=== PATIENT | female | born 1990 | race Caucasian/White ===

== ENCOUNTER 2021-12-08 08:09 | Emergency (ER) | payer OTHER, SELFPAY ==
[2021-12-08 08:21] VITALS: BP 127/77; PULSE 102; RESP 16; TEMP 36.8; O2SAT 99; BMI 37.2
[2021-12-08] MEDS: Ondansetron ODT 4 MG TAB.RAPDIS TRANSLINGU (08:27)
[2021-12-08 08:57] LABS: COVID-19 Test Negative (Negative); IDNOW Serial# 9DB6401D
--- NOTE | 2021-12-08 11:02 | ED.ASTHMA ---
HPI - Asthma General Chief Complaint: Asthma Stated Complaint: asthma, and throwing up Time Seen by Provider: 12/08/21 11:01 Source: patient Mode of arrival: ambulatory Limitations: no limitations History of Present Illness HPI Narrative: 31 yo female with history of mild intermittent asthma presents to the ER with 3 days of worsening productive cough, runny nose SOB and generally not feeling well. Her young son is home with similar symptoms. She has had not fevers or chills. She has been having a productive cough of white phlegm. It has been making her vomit. She has no abdominal pain, chest pain or difficulty breathing. She has been using her ProAir inhaler with no improvement in her symptoms. MD complaint: shortness of breath and wheezing Onset (ago): day(s) (3) Severity: moderate Context: recent URI Associated symptoms: productive cough Treatments Prior to Arrival: inhaled bronchodilator Related Data Current Asthma Therapy: inhaled bronchodilator Previous Rx's Medication Instructions Recorded azithromycin 250 mg tablet See Rx Instructions PO .COMPLEX #6 12/08/21 (Zithromax Z-Johny) tabs guaifenesin 1,200 mg tablet, 1,200 mg PO BID #10 tabs 12/08/21 extended release 12 hr (Mucinex) prednisone 20 mg tablet 40 mg PO DAILY #10 tabs 12/08/21 Allergies Allergy/AdvReac Type Severity Reaction Status Date / Time No Known Allergies Allergy Unverified 11/18/19 18:12 Review of Systems Review of Systems: Constitutional: No Fever, No Chills ENT/Mouth: + sore throat, +Rhinorrhea, No Swallowing Difficulty Eyes: No Eye Pain, No Swelling, No Redness Cardiovascular: No Chest Pain, No SOB, No Orthopnea, No Edema Respiratory: + Cough, + Sputum, + Wheezing, No dyspnea Gastrointestinal: + Nausea, + Vomiting, No Diarrhea, No abdominal Pain Musculoskeletal: No joint pain, + Myalgias Skin: No Skin Lesions, No rash Neuro: No Weakness, No Numbness, No Dizziness, + Headache Heme/Lymph: No Bruising, No Lymphadenopathy PMFSH Social History Social History Advance Directives: No Advance Directives Information Provided: Yes Physical Exam Vital Signs: Vital Signs: Last Vital Signs Temp 98.3 F 12/08/21 08:21 Pulse 85 12/08/21 11:33 Resp 18 12/08/21 11:33 BP 127/77 10/08/22 08:21 Pulse Ox 100 12/08/21 11:03 O2 Del Method 12/08/21 11:03 BMI result Body Mass Index 37.2 Appearance: Alert. Oriented X3. No acute distress. Eyes: Pupils equal, round and reactive to light. ENT: Pharynx normal. Neck: Normal inspection. Neck supple. CVS: Tachycardic regular rhythm, HR 110. Pulses normal. Respiratory: No respiratory distress. Breath sounds coarse throughout, mild expiratory wheeze at the bilateral bases. Abdomen: Soft and nontender. +BS x4 Skin: Skin warm and dry. Normal skin color. Normal skin turgor. No rashes. Extremities: Normal inspection x4. Neuro: Oriented X 3. Nonfocal, steady gait Course Course Course Narrative: 31 yo female with history of mild intermittent asthma presenting with productive cough, wheezing, SOB, runny nose and body aches x3 days in the setting of sickness exposure to her young son at home. She has been afebrile. COVID negative at home. On arrival she has tight lung sounds but is oxygenating well, no respiratory distress. COVID, Flu, CXR pending. Reevaluation(s) Reevaluation #1: CXR shows no pneumonia. COVID negative. Flu pending. Will give dose of prednisone and mucinex here as well as albuterol 5 mg neb and reassess. Reevaluation #2: Improved after neb. Flu negative. Stable for d/c home. Work note provided. MDM - Asthma Lab Data Labs: Lab Results 12/08/21 12/08/21 Range/Units 08:31 11:09 COVID-19 ([facility]ISSY) Negative (Negative) COVID-19 Clin Com See Note Influenza Type A (ROSS) Negative (Negative) Influenza Type B (ROSS) Negative (Negative) Influenza A & B Note See Note Discharge Plan Discharge Clinical Impression: Acute asthmatic bronchitis Patient Disposition: Home, Self-Care Additional Instructions: Your chest x-ray showed no pneumonia. You tested negative for Flu and COVID. Your symptoms are most likely due to a viral infection. Take the prescribed medications as directed. Start the prednisone tomorrow, you were given 1st dose today in the ER. Take over the counter cold/flu medications as needed for your symptoms. Rest and stay hydrated. If you develop new or worsening symptoms call 911 or come back to the ER for further evaluation. Prescriptions: New prednisone 20 mg tablet 40 mg PO DAILY Qty: 10 0RF azithromycin [Zithromax Z-Johny] 250 mg tablet See Rx Instructions .ROUTE .COMPLEX Qty: 6 0RF Rx Instructions: take 500 mg today (day 1), then 250 mg for 4 days (days 2-5) Mucinex 1,200 mg tablet extended release 12hr 1,200 mg PO BID Qty: 10 0RF Stand Alone Forms: Work/School Release
[2021-12-08 11:03] VITALS: PULSE 99; O2SAT 100
[2021-12-08] MEDS: guaiFENesin LA 600 MG TAB.ER.12H 1200 MG PO (11:14)
[2021-12-08] MEDS: predniSONE 20 MG TABLET 40 MG PO (11:14)
--- NOTE | 2021-12-08 11:26 | PC.NURSE ---
pt ambulatory into dept, dry cough heard. pt speaking in full sentances, SpO2 100% RA 99bpm
[2021-12-08] MEDS: Albuterol Sulfate 2.5 MG, Albuterol Sulfate (0.083%) 2.5 MG 5 MG INHALE (11:30)
--- OUTSIDE RECORDS SUMMARY | 2021-12-08 11:32 | XMS_ITS | Continuity of Care Document ---
:1990 Author Organization [facility]
--- OUTSIDE RECORDS SUMMARY | 2021-12-08 11:32 | XMS_ITS | Continuity of Care Document ---
:1990
[2021-12-08 11:33] VITALS: PULSE 85; RESP 18; O2SAT 99
[2021-12-08 11:40] LABS: IDNOW Serial# 9DB6401D; Influenza A Negative (Negative)
[2021-12-08 11:41] LABS: Influenza B2 Negative (Negative)
== END 2021-12-08 12:01 | disposition home or self-care (01) ==
PROVIDERS: Physician Assistant; Emergency Provider Emergency Medicine
DX: J45.909 Unspecified asthma, uncomplicated (principal); Z20.822 Contact with and (suspected) exposure to COVID-19
CPT/HCPCS: 71045; 87502; 87635; 94640; 99283; 99284

== ENCOUNTER 2024-09-14 08:26 | Outpatient (AMB) | payer OTHER, SELFPAY ==
--- NOTE | 2024-09-14 11:00 | MHC.OFFVISWM ---
VS Expanded 09/14/24 11:07 Height 4 ft 9 in Weight 178 lb 12 oz BMI 38.7 Body Fat % 39.1 Body Fat Mass 69.8 Fat Free Mass 109 Visceral Fat Rating 9 Body Water Mass 78.2 Basal Metabolic Rate/Score 1,530 Intake Visit Reasons: [employer] [facility] vs MWL BMI 38.7 Allergies No Known Allergies Allergy (Verified 09/14/24 11:00) Medication List - Last Reconciled 09/14/24 by Nadeem Poon MD hydroxyzine HCl 25 mg PO BEDTIME HPI HPI [employer]RATION [employer]GER SWL vs MWL BMI 38.7: Details: Start time: 10.50am, End time: 11.30am I spent 35 minutes speaking with the patient on the phone plus an additional 5 minutes reviewing and updating records for a total of 40 minutes HPI Comments Details: Previous weight loss efforts: self diet and exercise Wakes up: 6am, Sleeps: 10pm Breakfast: skips Lunch: 12pm (take-out) Dinner: 5pm (rice, pork chops, chicken, pasta) Snacks: 10am (chocolate, twix) Exercise: none Beverages: Coffee: none , tea: none, Soda: regular Coke daily, juice: 1-2/wk, ETOH: none PFSH Medical History (Updated 09/14/24 @ 11:19 by Nadeem Poon MD) Insomnia Anxiety BMI 38.0-38.9,adult Surgical History (Updated 09/14/24 @ 11:03 by Nadeem Poon MD) History of delivery History of laparoscopic cholecystectomy Telehealth Telehealth Telehealth Platform: Telephone Location of provider rendering services: practice address Location of patient: address on file Patient Identification confirmed using: Name, : Yes Telehealth method: voice only Patient verbally consented to treatment: Yes Patient verbally consented to billing insurance company: Yes Patient informed of any privacy concerns related to visit: Yes Minutes spent on Phone/Video with Pt.: 40 Assessment & Plan Assessment & Plan (1) Obesity: Code(s): E66.9 - Obesity, unspecified Category: Medical Qualifiers: Obesity type: due to excess calories Obesity classification: adult class 2 (BMI 35 - 39.9) Serious obesity comorbidity presence: with serious comorbidity Body mass index: BMI 38.0-38.9 Qualified Code(s): E66.812 - Obesity, class 2; E66.01 - Morbid (severe) obesity due to excess calories; Z68.38 - Body mass index [BMI] 38.0-38.9, adult Plan: 1. Plan for lap sleeve gastrectomy. If diaphragmatic or ventral hernias are present at time of surgery, these will be repaired laparoscopically as well. I emphasized the importance of close follow-up, adherence to instructions and good communication. The surgery does not replace the need to change your lifestlyle which is the cause of the obesity problem. The surgery provides the motivation to try again to change your lifestyle, it reduces the appetite and make the transition to a better lifestyle easier and doubles the amount of weight you would lose compared to doing the lifestyle change without the surgery. You will need to be on a liquid diet with protein shakes for 2 weeks before surgery to maximize weight loss and boost your nutritional status to recover better from surgery and also for the first two weeks after surgery to let the stomach heal before we introduce other foods. After the first 2 weeks we will introduce protein bars and soft foods like scrambled eggs, cottage cheese and yogurt and after the 6th week will introduce meat, fish and cooked vegetables in small amounts. Over time you should be able to eat everything in small amounts. Side effects like nausea, vomiting, heartburn or abdominal pain are not common in the practice unless you are not following in the practice. This operation requires lifetime commitment to following in our practice and communication with me. You will much less weight and experience side effects if you don?t communicate or not following in the practice. Complications are rare and in our practice is about 1/10 of the national average. However, you can develop bleeding that may require transfusion (hasn?t happened for year in the practice), you may from complications (we did not have any deaths in the practice) and infections. Infections are usually a result of breakdown in communication or not understanding or following directions correctly. They are difficult to treat, they can happen during the first 6 weeks, they may require to be in the hospital for weeks or even months, not being able to eat by mouth and you may have drains and surgeries to try and correct the issue. Other risks and complications include possible conversion to an open procedure, leaks, small bowel obstruction, blood clots, cardiac, or pulmonary complications, as joint terminal attack controller complications such as ulcers, insufficient weight loss and vitamin deficiencies. 2.Nutritional counseling. Start with one premade PREMIER protein (buy at [employer], or [employer], or [employer]) shake (mix 4oz of PREMIER and NOT the whole bottle with 4oz low fat unsweetened almond milk) at 7am-9am, 1 protein bar (16gr Fit Crunch protein bars, buy at [employer], [employer] or [employer]) at 10am-12pm, another premade PREMIER protein (buy at [employer], or [employer], or [employer]) shake () 8oz of PREMIER and NOT the whole bottle) at 1pm-3pm, another Fit Crunch protein bar at 4pm-6pm, dinner at 7pm (8 forks of protein and 8 forks of salad/vegetables) and another HALF [employer] Crunch protein bar, if you feel hungry after dinner at 9pm-10pm. So you do 2 protein shakes, 2 to 2.5 protein bars and one meal per day. Meal to include lean meat (beef, fish, pork, turkey, chicken), or comoran yogurt, or egg whites, or beans with a salad with olive oil and fruits (berries, pears, apples, kiwi). Avoid salt, breads, potatoes, rice, pasta, desserts. 3. Each shake would be drunk slowly, like coffee in a period of 2 hours. 4. Cut each bar in 4 pieces and eat each piece in 30min to make each bar last 2 hours. 5. I emphasized the importance of measuring accurately the food portion and measure it when serving the food in plate 6. The meal portions include 8 full-size forks of meat and 8 full-size forks of salad. You always eat the meat portion but you can replace up to 4 forks for salad/vegetables with rice, potatoes or pasta, or a fruit if you like. The less you do it the better weight loss will be. 7. One full-size fork is what it can be scooped on the fork without falling aside and not what can be bit with the fork. Use regular forks like those you find in a typical restaurant. 8. Please buy the body composition scale we discussed and send me weight measurements as soon as possible and then once a week. Always include your diet and exercise plan. 9. Start stationary bike at a resistance level of 4.0 Increase level by 1.0 every 3 min to a max level of 10.0. Stay at this level for 3 min and then return to level 4.0 and repeat same steps until 300 calories are burned. Velocity target is 12mph and heart rate is 145 bpm. Goal is to burn 2000 calories per week on exercise 10. The best choice would be to purchase a stationary bike, elliptical or treadmill at home that can track calories. Let me know if you do so I can give you an exercise plan. 11. It is important of avoiding and for at least 18 months postoperatively and has been discussed at the infosession. 12. Goal is to lose at least 1.5-2lbs per week 13. Goal to lose 10% of your weight before surgery, which is about 18lbs. Ultimate weight goal: 160lbs before surgery 14. Please follow the diet plan exactly without any change. If you don't like something about the plan or you feel hungry you need to communicate with me so I can help you revise the plan. You should not change the plan yourself 15. To be scheduled for EGD to assess the stomach's anatomy. The possibility of biopsies was discussed. Patient needs to avoid use of NSAIDs and aspirin for 1 week prior to EGD. You must be on liquids only the day before your endoscopy. Risks of perforation and bleeding was discussed with the patient. This will be an outpatient procedure with IV sedation. 16. As of tomorrow, please send me a picture of your meal plate after you measure it, but before you consume it. Orders: Orders IRON PROFILE Today E66.9 - Obesity, unspecified, Z68.38 - Body mass index [BMI] 38.0-38.9, adult Comprehensive Met. Panel Today E66.9 - Obesity, unspecified, Z68.38 - Body mass index [BMI] 38.0-38.9, adult Vitamin B12 and Folate Today E66.9 - Obesity, unspecified, Z68.38 - Body mass index [BMI] 38.0-38.9, adult Zinc Today E66.9 - Obesity, unspecified, Z68.38 - Body mass index [BMI] 38.0-38.9, adult TSH reflex Free T4 Today E66.9 - Obesity, unspecified, Z68.38 - Body mass index [BMI] 38.0-38.9, adult Ferritin Today E66.9 - Obesity, unspecified, Z68.38 - Body mass index [BMI] 38.0-38.9, adult ECG 12 lead EKG Today E66.9 - Obesity, unspecified, Z68.38 - Body mass index [BMI] 38.0-38.9, adult Insulin Today E66.9 - Obesity, unspecified, Z68.38 - Body mass index [BMI] 38.0-38.9, adult Hemoglobin A1c Today E66.9 - Obesity, unspecified, Z68.38 - Body mass index [BMI] 38.0-38.9, adult H Pylori Breath Test Today E66.9 - Obesity, unspecified, Z68.38 - Body mass index [BMI] 38.0-38.9, adult Complete Blood Count Auto Diff Today E66.9 - Obesity, unspecified, Z68.38 - Body mass index [BMI] 38.0-38.9, adult Lipid Panel Today E66.9 - Obesity, unspecified, Z68.38 - Body mass index [BMI] 38.0-38.9, adult C Reactive Protein Today E66.9 - Obesity, unspecified, Z68.38 - Body mass index [BMI] 38.0-38.9, adult Vitamin B1 Today E66.9 - Obesity, unspecified, Z68.38 - Body mass index [BMI] 38.0-38.9, adult Vitamin A Today E66.9 - Obesity, unspecified, Z68.38 - Body mass index [BMI] 38.0-38.9, adult Vitamin D 25-OH Total Today E66.9 - Obesity, unspecified, Z68.38 - Body mass index [BMI] 38.0-38.9, adult US abdomen comp w elastography Today E66.9 - Obesity, unspecified, Z68.38 - Body mass index [BMI] 38.0-38.9, adult XR chest 2V Today E66.9 - Obesity, unspecified, Z68.38 - Body mass index [BMI] 38.0-38.9, adult FL upper GI w air Today E66.9 - Obesity, unspecified, Z68.38 - Body mass index [BMI] 38.0-38.9, adult Referrals Behavioral Health Referral E66.9 - Obesity, unspecified, Z68.38 - Body mass index [BMI] 38.0-38.9, adult Nutrition/Dietitian Referral E66.9 - Obesity, unspecified, Z68.38 - Body mass index [BMI] 38.0-38.9, adult
[2024-09-14 11:07] VITALS: BMI 38.7
== END 2024-09-14 11:30 | disposition home or self-care (01) ==
LOC: HO.HBS 08:26
PROVIDERS: Visit Provider Surgery
DX: E66.812 Obesity, class 2 (principal); E66.01 Morbid (severe) obesity due to excess calories; Z68.38 Body mass index [BMI] 38.0-38.9, adult
CPT/HCPCS: 99203

== ENCOUNTER 2024-09-22 10:08 | Outpatient (REF) | payer OTHER, SELFPAY ==
--- NOTE | ~2024-09-22 | XR_ITS ---
EXAMINATION: XR CHEST CLINICAL INFORMATION: E66.9 - Obesity, unspecified COMPARISON: 12/08/2021. TECHNIQUE: 2 views of the chest were obtained. FINDINGS: The cardiac, hilar, and mediastinal contours are normal. The lungs are clear bilaterally. There is no pneumothorax or pleural effusion. There is no focal osseous or soft tissue abnormality. XR/XR chest 2V IMPRESSION: Normal chest. Electronically signed by: Sky Ng MD 09/22/2024 10:50 AM EDT
--- NOTE | 2024-09-22 10:14 | ECG_ITS ---
Test Reason : E66.9 Blood Pressure : */* mmHG Vent. Rate : 66 BPM Atrial Rate : 66 BPM P-R Int : 166 ms QRS Dur : 84 ms QT Int : 394 ms P-R-T Axes : 21 43 52 degrees QTcB Int : 413 ms Normal sinus rhythm Normal ECG No previous ECGs available Referred By: Nadeem Poon Electronically Signed By: Robinson Pompa
[2024-09-22 10:23] LABS: MANUAL DIFF FLAG NO
[2024-09-22 11:35] LABS: Hematocrit 33.7 % (37.0-47.0); Hemoglobin 10.4 g/dl (12.0-16.0); Imm Gran Abs Auto 0.05 X10*3/uL (0.00-0.03); Imm Gran Pct Auto 0.6 % (0.0-0.4); Lymphocytes Absolute Auto 2.9 X10*3/uL (1.2-4.9); Mean Corpuscular HGB Conc 30.9 g/dl (31.0-35.0); Mean Corpuscular Hemoglobin 24.1 pg (27.0-33.0); Mean Corpuscular Volume 78.2 fL (80.0-98.0); NRBC Abs Auto 0.000 X10*3/uL (0.0-0.012); NRBC Pct Auto 0.0 /100WBC (0.0-0.2); Platelet Count 380 X10*3/uL (160-400); Red Blood Count 4.31 X10*6/uL (4.20-5.50); White Blood Count 8.5 X10*3/uL (4.8-10.8)
[2024-09-22 11:42] LABS: Hemoglobin A1C 88.8075 umol/L; Total Hemoglobin (HGBA1C) 2701.6136 umol/L
[2024-09-22 12:12] LABS: Alanine Aminotransferase 17 U/L (0-31); Albumin Level 4.6 g/dL (3.5-5.0); Alkaline Phosphatase 79 U/L (39-117); Anion Gap 9 (12-20); Aspartate Amino Transferase 21 U/L (5-31); Blood Urea Nitrogen 12 mg/dL (9-16); Calcium 9.0 mg/dL (8.4-10.2); Carbon Dioxide 26 mmol/L (22-29); Chloride 107 mmol/L (96-108); Cholesterol 152 mg/dL (<200); Estimated Glomerular Filt Rate > 60; HDL Cholesterol 42 mg/dL (>40); Iron 48 mcg/dL (30-160); Percent Iron Saturation 14 % (15-50); Potassium 4.1 mmol/L (3.3-5.1); Sodium 138 mmol/L (135-145); Total Iron Binding Capacity 352 mcg/dL (228-428); Total Protein 8.0 g/dL (6.5-8.0); Triglycerides 48 mg/dL (<150); Unsaturated Iron Binding 304 ug/dL
[2024-09-22 12:29] LABS: Ferritin 7 ng/mL (10-122)
[2024-09-22 12:36] LABS: Folate 12.5 ng/mL (> or = 4.0); Vitamin B12 421 pg/mL (200-900)
== END 2024-09-22 10:09 | disposition home or self-care (01) ==
LOC: HO.LAB 10:08
PROVIDERS: Visit Provider Surgery
DX: E66.9 Obesity, unspecified (principal); Z68.38 Body mass index [BMI] 38.0-38.9, adult
CPT/HCPCS: 36415; 71046; 80053; 80061; 82306; 82607; 82728; 82746; 83036; 83525; 83540; 84425; 84443; 84590; 84630; 85025; 86140; 93005

== ENCOUNTER → 2024-09-22 10:14 | Outpatient (BNV) | payer OTHER, SELFPAY | PROVIDERS: Visit Provider Internal Medicine Cardiovascular Disease | DX: E66.9 Obesity, unspecified (principal) | CPT/HCPCS: 93010 ==

== ENCOUNTER → 2024-09-22 10:37 | Outpatient (BNV) | payer OTHER, SELFPAY | PROVIDERS: Visit Provider Radiology Diagnostic Radiology | DX: E66.9 Obesity, unspecified (principal) | CPT/HCPCS: 71046 ==